=== PATIENT | male | born 1960 | race Caucasian/White ===

== ENCOUNTER 2017-04-16 11:35 | Emergency (ER) | payer BC ==
[~2017-04-16] VITALS: Ht 172.7 cm; Wt 88.0 kg
[2017-04-16 11:40] VITALS: TEMP 36.8; Ht 172.7 cm; Wt 88.0 kg
[2017-04-16] MEDS ORDERED: XYLOCAINE 1%/SOD BICARB 20 ML VIAL INFIL ONE (12:15)
[2017-04-16] MEDS ORDERED: OXYCODONE/ACETAMINOPHEN 5-325 TAB PO ONE (12:15)
--- NOTE | 2017-04-16 12:19 | EMERGENCY ROOM VISIT NOTE ---
ED Visit Note First contact with patient: 11:56 CHIEF COMPLAINT: Leg laceration HISTORY OF PRESENT ILLNESS: This 57-year-old male patient presents to the emergency department ambulatory after cutting the right leg with a toe kick saw at home just prior to arrival. The bleeding has stopped. Denies weakness or numbness of the foot or toes. The patient rates his discomfort a 5/10. The patient denies any other injuries. The patient's Tetanus shot is up to date. REVIEW OF SYSTEMS: A 6 system review of systems was completed with positives and pertinent negatives listed in the HPI. ALLERGIES: No known allergies MEDICATIONS: None PMH: None SOCIAL HISTORY: The patient lives locally. He does not smoke PHYSICAL EXAM: Vital Signs: Reviewed Nurse's notes, vital signs stable. GENERAL : This is a 57-year-old male, in no acute distress, well-developed, well- nourished. SKIN: There is a very large, jagged, laceration to the dorsal aspect of the right distal leg. The edges gape apart with traction. There is no foreign material in the wound and it looks clean. There is minimal bleeding. No deep structures such as tendons, bones, or nerves are seen in the base of the wound. Normal strength and movement of the foot and toes. Capillary refill less than 2 seconds. Normal sensation to light and sharp touch. EMERGENCY DEPARTMENT COURSE: I examined the patient. . Initially, this appeared as though there was a large skin avulsion. The patient states that he knew large piece of skin had come off in the saw. I contacted Dr. Stuart. He recommended irrigation, closure as well as could be performed. He recommended iodoform dressing to the open area. He recommended IM or IV antibiotics here as well as a prescription. He can see the patient in the office on Tuesday. The patient was given Percocet. And 1 g IM Rocephin. Using sterile technique the wound was cleaned with Betadine. The area was sterilely draped. 8 ml of 1% buffered lidocaine was used to anesthetize the laceration on the leg. Once the patient was numb, the wound was copiously irrigated under pressure with sterile saline. On further exploration, it appears as though the majority of the tissue is present but is slightly retracted and a tissue flap had been folded underneath itself. The wound is very large, complex, jagged and irregular. There is a sawtooth pattern from the saw. The wound measures approximately 10 cm in total length. The laceration was repaired using a total of 33 sutures. There were 2 vertical mattress sutures placed, several pursestring sutures using 4-0 nylon and 5-0 nylon. The wound edges were fairly well approximated. The patient tolerated the procedure well. The bleeding stopped. The area was cleaned with sterile saline and dressed with bacitracin ointment and bandage. The patient was given Td immunization. The patient was discharged home in good condition. DISCHARGE INSTRUCTIONS & TREATMENT: Keep wound clean and dry. Do not allow any crusting or dried blood to accumulate on sutures. If this occurs, use a 1:1 solution of hydrogen peroxide/water on a Q-tip to clean the wound. Use an antibiotic ointment for 3-4 days, then let wound dry. Suture removal in 12-14 days. Return sooner for any signs of infection (increasing redness, swelling, drainage). Ice and elevate for swelling and pain. Ibuprofen 600 mg every 6 hrs for pain. Keep covered when in sun until sutures removed then SPF 50 or higher for one year. Vitamin E oil if desired two weeks after suture removal for reduction of scar. Ice and elevate frequently Keflex as prescribed, until finished prevent infection Percocet 1-2 tablet every 4-6 hours as needed for worse pain. No driving or alcohol use with Percocet and do not take with Tylenol. Contact orthopedics first thing Tuesday to schedule a follow-up appointment Return with any worsening symptoms Current/Historical Medications Scheduled Cephalexin Monohydrate (Keflex), 500 MG PO QID Scheduled PRN Oxycodone/Acetaminophen 5MG/325MG (Percocet 5MG/325MG), 1 TAB PO Q4H PRN for Pain Allergies Coded Allergies: No Known Allergies (Unverified , 04/16/17) Vital Signs Date Time Temp Pulse Resp B/P Pulse Ox O2 Delivery O2 Flow Rate FiO2 04/16/17 14:26 88 140/92 97 Room Air 04/16/17 11:40 36.8 109 20 160/87 96 Room Air Medications Administered Medications (Trade) Dose Ordered Sig/Pvaan Route Start Time Stop Time Status Last Admin Dose Admin Oxycodone/ Acetaminophen (Percocet 5-325mg Tab) 1 tab NOW ONCE PO 5/27/17 12:15 04/16/17 12:16 DC 04/16/17 12:22 1 TAB Lidocaine HCl (Buffered Lidocaine 1% Inj) 20 ml NOW ONCE INFIL 04/16/17 12:15 04/16/17 12:16 DC 04/16/17 12:22 20 ML Ceftriaxone Sodium (Rocephin Im) 1,000 mg NOW STAT IM 04/16/17 13:01 04/16/17 13:02 DC 04/16/17 13:01 1,000 MG Departure Information Impression Primary Impression: Laceration of leg Dispostion Home / Self-Care Condition GOOD Prescriptions Oxycodone/Acetaminophen 5MG/325MG (PERCOCET 5MG/325MG) Tab 1 TAB PO Q4H Y for Pain, #18 TAB For Initial Treatment Prov: Kavya Swenson PA-C 04/16/17 Cephalexin Monohydrate (Keflex) 500 Mg Cap 500 MG PO QID for 7 Days, #28 CAP Prov: Kavya Swenson PA-C 04/16/17 Referrals No Doctor, Assigned (PCP) Maykel Stuart D.O. Patient Instructions ED Laceration All, My [facility] Additional Instructions Keep wound clean and dry. Do not allow any crusting or dried blood to accumulate on sutures. If this occurs, use a 1:1 solution of hydrogen peroxide/ water on a Q-tip to clean the wound. Use an antibiotic ointment for 3-4 days, then let wound dry. Suture removal in 12-14 days. Return sooner for any signs of infection (increasing redness, swelling, drainage). Ice and elevate for swelling and pain. Ibuprofen 600 mg every 6 hrs for pain. Keep covered when in sun until sutures removed then SPF 50 or higher for one year. Vitamin E oil if desired two weeks after suture removal for reduction of scar. Ice and elevate frequently Keflex as prescribed, until finished prevent infection Percocet 1-2 tablet every 4-6 hours as needed for worse pain. No driving or alcohol use with Percocet and do not take with Tylenol. Contact orthopedics first thing Tuesday to schedule a follow-up appointment Return with any worsening symptoms Problem Qualifiers Primary Impression: Laceration of leg Encounter type: initial encounter Laterality: right Qualified Codes: S81.811A - Laceration without foreign body, right lower leg, initial encounter
[2017-04-16] MEDS ORDERED: CEFTRIAXONE SOD 350MG/ML 1 GM VIAL IM STA (13:01)
[2017-04-16 14:26] VITALS: BP 140/92; PULSE 88; O2SAT 97
[2017-04-16] MEDS ORDERED: CEPH500C PO (14:27)
[2017-04-16] MEDS ORDERED: OXYC-57 PO (14:27)
== END 2017-04-16 14:38 | disposition home or self-care (01) ==
LOC: C.EDB 11:36 → C.EDD 14:38
DX: S81.811A Laceration without foreign body, right lower leg, initial encounter (principal); W29.3XXA Contact with powered garden and outdoor hand tools and machinery, initial encounter